=== PATIENT | female | born 1990 | race Caucasian/White ===

== ENCOUNTER 2021-01-01 16:16 | Inpatient (IN) | payer OTHER, SELFPAY ==
[~2021-01-01] VITALS: Ht 175.3 cm; Wt 157.3 kg
[2021-01-01] MEDS ORDERED: LORazepam 2 MG/ML, 1ML IV ONE (16:29)
--- NOTE | 2021-01-01 16:29 | NUR ---
pg code radha @[phone] shwetha garza @[id number]
[2021-01-01] MEDS ORDERED: ONDANSETRON ODT 4 MG ONE (16:46)
[2021-01-01] MEDS ORDERED: ONDANSETRON 2MG/ML, 2ML IVPush ONE (17:00)
[2021-01-01] MEDS ORDERED: ONDANSETRON ODT 4 MG PO ONE (17:00)
[2021-01-01] MEDS ORDERED: ONDANSETRON 2MG/ML, 2ML ONE (17:14)
[2021-01-01 17:30] LABS: BASOPHILS % (AUTO) 1 % (0-1); EOSINOPHILS % (AUTO) 0 % (1-7); LYMPHOCYTES % (AUTO) 18 % (22-44); MEAN CORPUSCULAR HEMOGLOBIN 33.5 pg (27.0-34.8); MEAN CORPUSCULAR HGB CONC 33.6 g/dL (32.4-35.8); MEAN PLATELET VOLUME 8.7 fL (7.4-10.4); MONOCYTES % (AUTO) 5 % (2-9); NEUTROPHILS % (AUTO) 76 % (42-75); PLATELET COUNT 230 x10^3/uL (130-400); RED BLOOD COUNT 3.99 x10^6/uL (3.82-5.3); RED CELL DISTRIBUTION WIDTH 13.2 % (9.6-15.2)
[2021-01-01 17:32] LABS: MD NO
[2021-01-01] MEDS ORDERED: LORazepam 2 MG/ML, 1ML ONE (17:38)
[2021-01-01 17:44] LABS: INTERNATIONAL NORMALIZED RATIO 0.99 (0.93-1.1); PROTHROMBIN TIME 10.6 Seconds (9.6-11.5)
--- NOTE | 2021-01-01 17:57 | NUR ---
PIV STARTED AND BLOOD DRAWN (1 LAVENDER TUBE), LAB HAD ALREADY DRAWN OTHER TUBES. PT MEDICATED PER EMAR. CONTINUOUS SPO2, CARDIAC MONITORS APPLIED. PT IS IN A NORMAL SINUS RHYTHM. VS STABLE. PT REMAINS TEARFUL, INTERMITTANTLY, AND IS HAVING SOME EXPRESSIVE APHASIA WITH DIFFICULTY.
--- NOTE | 2021-01-01 18:57 | NUR ---
Bedside report to MICKI Hastings. MD Bradley at bedside update pt and family on POC. Pt sitting upright, gagging, holding own vomit bag.
--- NOTE | 2021-01-01 18:57 | NUR ---
REPORT FROM CAMILLE SWEET
[2021-01-01] MEDS ORDERED: DIPHENHYDRAMINE 50 MG/ML, 1ML ONE (18:58)
[2021-01-01] MEDS ORDERED: METOCLOPRAMIDE 5 MG/ML, 2ML ONE (18:59)
[2021-01-01] MEDS ORDERED: SODIUM CHLORIDE 0.9% 1,000ML IVBOLUS ONE (19:00)
[2021-01-01] MEDS ORDERED: CEFTRIAXONE PMX 2GM/50ML 50 ML IVPB ONE (19:00)
[2021-01-01] MEDS ORDERED: VANCOMYCIN PER PHARMACY MC PRN ×2 (19:00→20:00)
[2021-01-01] MEDS ORDERED: DIPHENHYDRAMINE 50 MG/ML, 1ML IVPush ONE (19:00)
[2021-01-01] MEDS ORDERED: METOCLOPRAMIDE 5 MG/ML, 2ML IVPush ONE (19:00)
[2021-01-01 19:05] LABS: SALICYLATE LEVEL < 1.7 mg/dL (2.8-20.0)
[2021-01-01] MEDS ORDERED: CEFTRIAXONE PMX 2GM/50ML 50 ML ONE (19:12)
[2021-01-01] MEDS: ACYCLOVIR 700 MG in SODIUM CHLORIDE 0.9% 100 ML IV SCH (19:24)
--- NOTE | 2021-01-01 19:25 | NUR ---
PT TO IR
[2021-01-01] MEDS ORDERED: VANCOMYCIN 2,500 MG in SODIUM CHLORIDE 0.9% 500 ML IV ONE (19:30)
[2021-01-01] MEDS ORDERED: LABETALOL 5MG/ML, 20ML IVPush PRN (20:00)
[2021-01-01] MEDS ORDERED: HYDROcodone/APAP 5/325 TABLET PO PRN (20:00)
[2021-01-01] MEDS: CEFTRIAXONE 2 GM in SODIUM CHLORIDE 0.9% 50 ML IVPB SCH (20:00)
--- NOTE | 2021-01-01 20:30 | NUR ---
PT RETRUNED TO ED FROM IR. RESTING CALMLY, SUPINE ON GURNEY. NADN, VSS. MEDICATED PER EMAR
[2021-01-01 20:43] LABS: GLUCOSE, CSF 53 mg/dL (40-80); TOTAL PROTEIN,CSF 61 mg/dL (15-45)
[2021-01-01 20:50] LABS: HCT (SEDRATE) 40.1 % (34.6-47.8)
--- NOTE | 2021-01-01 21:00 | NUR ---
PT SUPINE ON GURNEY, ABLE TO ANSWER SIMPLE QUESTIONS AND CONVERSE WITH THIS RN AND FAMILY AT BEDSIDE. PT CALMLY RESTING, GITA, AMBER.
--- NOTE | 2021-01-01 21:02 | NUR ---
Pt to be admitted to TELE2, room 493-1. Report called to [facility].
[2021-01-01 21:08] VITALS: BP 111/66
--- NOTE | 2021-01-01 21:09 | NUR ---
MOTHER: DOROTHEA [phone] BROTHER: NINO [phone]
[2021-01-01 21:41] VITALS: BP 111/66
[2021-01-01] MEDS ORDERED: PHARMACOKINETIC MONITORING MC PRN (22:00)
[2021-01-01] MEDS ORDERED: PHARMACOKINETIC CONSULTATION MC ONE (22:00)
[2021-01-01] MEDS: POTASSIUM CHLORIDE 20 MEQ in LACTATED RINGERS 1,000 ML IV SCH (23:28)
[2021-01-02 01:06] VITALS: BP 91/61
[2021-01-02] MEDS: BUTALB/APAP/CAFFEINE 50MG/325MG/40MG PO PRN ×2 (02:24→19:47)
[2021-01-02] MEDS: ACYCLOVIR 700 MG in SODIUM CHLORIDE 0.9% 100 ML IV SCH ×3 (03:03→21:56)
[2021-01-02 05:36] LABS: BASOPHILS % (AUTO) 1 % (0-1); EOSINOPHILS % (AUTO) 0 % (1-7); LYMPHOCYTES % (AUTO) 13 % (22-44); MEAN CORPUSCULAR HEMOGLOBIN 33.3 pg (27.0-34.8); MEAN CORPUSCULAR HGB CONC 33.3 g/dL (32.4-35.8); MEAN PLATELET VOLUME 8.9 fL (7.4-10.4); MONOCYTES % (AUTO) 4 % (2-9); NEUTROPHILS % (AUTO) 82 % (42-75); PLATELET COUNT 232 x10^3/uL (130-400); RED BLOOD COUNT 3.67 x10^6/uL (3.82-5.3); RED CELL DISTRIBUTION WIDTH 13.3 % (9.6-15.2)
[2021-01-02 05:41] LABS: ALBUMIN 3.3 g/dL (3.4-5.0); ANION GAP 4 mmol/L (5-15); CALCIUM 8.3 mg/dL (8.5-10.1); CHLORIDE 109 mmol/L (98-107)
[2021-01-02 05:46] LABS: MD NO
[2021-01-02 05:47] LABS: ALANINE AMINOTRANSFERASE 19 U/L (12-78); ALKALINE PHOSPHATASE 44 U/L (45-117); BILIRUBIN,TOTAL 0.6 mg/dL (0.2-1.0); CHOL/HDL RATIO 2.8; CHOLESTEROL, TOTAL 131 mg/dL (140-239); CREATININE 0.73 mg/dL (0.55-1.02); HDL CHOL % 36 % (28-40); HDL CHOLESTEROL (DIRECT) 47 mg/dL (40-60); LDL CHOLESTEROL,CALCULATED 68 mg/dL (54-169); LDL/HDL RATIO 1.4 (0.5-3.0); TOTAL PROTEIN 6.6 g/dL (6.4-8.2); TRIGLYCERIDES 82 mg/dL (50-200); VLDL CHOLESTEROL 16 mg/dL (0-25)
[2021-01-02 07:18] VITALS: BP 123/62
[2021-01-02] MEDS: VANCOMYCIN 2,000 MG in SODIUM CHLORIDE 0.9% 500 ML IV SCH ×2 (09:07→22:41)
[2021-01-02] MEDS: CEFTRIAXONE 2 GM in SODIUM CHLORIDE 0.9% 50 ML IVPB SCH ×2 (10:28→21:56)
[2021-01-02 10:44] LABS: AMPHETAMINE SCREEN, URINE Negative (Negative); BARBITURATE SCREEN, URINE Positive (Negative); BENZODIAZEPINE SCREEN, URINE Negative (Negative); CANNABINOID SCREEN, URINE Negative (Negative); COCAINE SCREEN, URINE Negative (Negative); METHADONE SCREEN, URINE Negative (Negative); OPIATE SCREEN, URINE Positive (Negative)
[2021-01-02 12:18] VITALS: BP_SYST 108; BP_DIAS 61; BP_DIAS 71
[2021-01-02] MEDS: POTASSIUM CHLORIDE 20 MEQ in LACTATED RINGERS 1,000 ML IV SCH (14:07)
[2021-01-02 19:02] VITALS: BP 109/70
[2021-01-03 00:33] VITALS: BP 102/64
[2021-01-03] MEDS: ACYCLOVIR 700 MG in SODIUM CHLORIDE 0.9% 100 ML IV SCH ×2 (05:33→14:56)
[2021-01-03 07:13] VITALS: BP 102/64
[2021-01-03] MEDS: CEFTRIAXONE 2 GM in SODIUM CHLORIDE 0.9% 50 ML IVPB SCH (10:00)
[2021-01-03] MEDS: POTASSIUM CHLORIDE 20 MEQ in LACTATED RINGERS 1,000 ML IV SCH (10:00)
[2021-01-03] MEDS: VANCOMYCIN 2,000 MG in SODIUM CHLORIDE 0.9% 500 ML IV SCH (10:48)
[2021-01-03 12:29] VITALS: BP 131/74
[2021-01-03] MEDS ORDERED: GADOTERATE 10 MMOL/20ML SYR ONE (13:23)
[2021-01-03] MEDS ORDERED: ACYC-114 PO (14:37)
[2021-01-03] MEDS ORDERED: SUMA100T3 PO (14:37)
[2021-01-03] MEDS ORDERED: CEFTRIAXONE 2 GM in DEXTROSE 5% 50 ML IVPB SCH (22:00)
== END 2021-01-03 16:45 | disposition home or self-care (01) | DRG 102 ==
LOC: ED 19:19 → EDIP 19:37 → 4EST 21:20 → DCLOUNGE 01-03 16:40
PROVIDERS: ADMIT Internal Medicine; ATTEND Internal Medicine
PROC: 009U3ZX Drainage of Spinal Canal, Percutaneous Approach, Diagnostic (ICD-10-PCS; principal; 2021-01-01)
PROC: B01B1ZZ Fluoroscopy of Spinal Cord using Low Osmolar Contrast (ICD-10-PCS; 2021-01-01)
DX: G43.109 Migraine with aura, not intractable, without status migrainosus (principal); G92 Toxic encephalopathy; G04.90 Encephalitis and encephalomyelitis, unspecified; R47.01 Aphasia; F23 Brief psychotic disorder; G40.802 Other epilepsy, not intractable, without status epilepticus; Z68.43 Body mass index [BMI] 50.0-59.9, adult; E87.6 Hypokalemia; E66.9 Obesity, unspecified
CPT/HCPCS: 36415; 62328; 70450; 70551; 70552; 80047; 80053; 80061; 80143; 80179; 80307; 80320; 82945; 82962; 83735; 84100; 84157; 84443; 85025; 85610; 85651; 85730; 87040; 87070; 87205; 87252; 89051; 93005; 95812; 96365; 96375; 99292; G0378; J0133; J0696; J2405; J3370; J3480; Q0162; 92523-GN; A9575; G0480; J1200; J2060; J2765; J7030; J7040; J7120